=== PATIENT | female | born 1945 | race Caucasian/White ===

== ENCOUNTER 2016-10-10 06:21 | Inpatient (IN) | payer MEDICARE, MEDICAID ==
[~2016-10-10 06:21] MED LIST: ALDACTONE25 MG PO; ALPRAZOLAM0.25 MG PO; AVANDIA8 MG PO; BENTYL20 MG PO; CELEBREX100 MG PO; CITRATE OF MAG300 ML PO; COREG6.25 MG PO; COUMADIN5 M1 PO; DOCUSATE CALCI100 MG PO; DULCOLAX10 MG/SUPP RC; ELAVIL25 MG PO; FLOVENT RO50 MCG/DIS IH; GLIMEPIRIDE2 MG PO; GLUCOPHAGE500 MG PO; HUMALOG100 U/ML SQ; HYZAAR 50-12.51 TA1 PO; JANUVIA100 MG PO; K-DUR20 ME1 PO; LIPITOR20 MG PO; LOVENOX40 MG/0.4 SQ; MIRALAX17 G1 PO; MIRALAX17 GM PO; MORPHINE SULFAT1 PO; MORPHINE SULFAT30 M3 PO; OMEPRAZOLE20 MG PO; ORAMORPH SR30 M1 PO; PERCOCET 5/3251 TAB PO; PHENERGAN25 MG PO; PROAIR INHALER; RESTORIL15 MG PO; SINGULAIR10 MG PO; TRANSDERM-1 PATCH .7 TD; TRIAMTERENE/HYDR1 EA PO; TYLENOL500 MG PO; ULTRAM50 MG PO; ZANAFLEX4 M PO; ZESTRIL2.5 M2 PO; ZOCOR40 MG PO; ZOFRAN4 M1 PO; ZYRTEC10 MG PO
[2016-10-10] MEDS ORDERED: ALBUTEROL2.5 MG/3 M INH (08:22)
[2016-10-10] MEDS ORDERED: SYMBICORT 160-1 PUFF INH (08:23)
[2016-10-10] MEDS ORDERED: PLAVIX75 M1 PO ×2 (08:24→09:16)
[2016-10-10] MEDS ORDERED: DULOXETINE HCL60 M1 PO (08:25)
[2016-10-10] MEDS ORDERED: FLONASE ALLERG9.9 ML INH (08:28)
[2016-10-10] MEDS ORDERED: COZAAR25 M1 PO ×2 (08:28→09:26)
[2016-10-10] MEDS ORDERED: NEURONTIN100 M1 PO (08:28)
[2016-10-10] MEDS ORDERED: MIRALAX17 G2 PO ×2 (08:29→09:35)
[2016-10-10] MEDS ORDERED: WELLBUTRIN SR100 M2 PO (08:36)
[2016-10-10] MEDS ORDERED: NOVOLOG FL100 UNIT/2 SC (08:37)
[2016-10-10] MEDS ORDERED: TYLENOL325 M2 PO ×2 (09:14)
[2016-10-10] MEDS ORDERED: XANAX0.25 M1 PO (09:15)
[2016-10-10] MEDS ORDERED: ANORO ELLIPTA1 EAC1 PO (09:15)
[2016-10-10] MEDS ORDERED: WELLBUTRIN XL150 M1 PO (09:15)
[2016-10-10] MEDS ORDERED: COREG6.25 M1 PO (09:16)
[2016-10-10] MEDS ORDERED: COUMADIN6 M1 PO (09:17)
[2016-10-10] MEDS ORDERED: COUMADIN7.5 M1 PO (09:18)
[2016-10-10] MEDS ORDERED: CYMBALTA60 M1 PO (09:18)
[2016-10-10] MEDS ORDERED: IPRAT-ALBUT 0.5-3 ML INH ×2 (09:20→09:25)
[2016-10-10] MEDS ORDERED: FLONASE ALLERG9.9 ML (09:21)
[2016-10-10] MEDS ORDERED: LASIX40 M1 PO (09:21)
[2016-10-10] MEDS ORDERED: NEURONTIN300 M1 PO (09:21)
[2016-10-10] MEDS ORDERED: GLYCERIN1 EAC1 PR (09:22)
[2016-10-10] MEDS ORDERED: AMARYL2 M1 PO (09:22)
[2016-10-10] MEDS ORDERED: GUAIFENESIN AC473 ML PO (09:24)
[2016-10-10] MEDS ORDERED: MAG-AL PLUS XS30 M1 PO (09:27)
[2016-10-10] MEDS ORDERED: MILK OF MAGNESIA PO (09:28)
[2016-10-10] MEDS ORDERED: BENGAY ULTRA S1 EACH TOP (09:29)
[2016-10-10] MEDS ORDERED: NITROSTAT0.4 MG/TAB SL (09:31)
[2016-10-10] MEDS ORDERED: NYSTOP60 GM TOP (09:32)
[2016-10-10] MEDS ORDERED: PHENASEPTIC177 ML PO (09:34)
[2016-10-10] MEDS ORDERED: PROTONIX40 M2 PO (09:34)
[2016-10-10] MEDS ORDERED: POTASSIUM CHLO20 ME3 PO (09:36)
[2016-10-10] MEDS ORDERED: VENTOLIN HFA18 G2 INH (09:37)
[2016-10-10] MEDS ORDERED: COMPAZINE10 MG PO (09:38)
[2016-10-10] MEDS ORDERED: ROBAFEN DM CGH118 ML PO (09:39)
[2016-10-10] MEDS ORDERED: SALINE NASAL M126 ML (09:39)
[2016-10-10] MEDS ORDERED: SENNA8.6 M2 PO (09:40)
[2016-10-10] MEDS ORDERED: ZOCOR40 M1 PO (09:41)
[2016-10-10] MEDS ORDERED: ZANAFLEX4 M2 PO (09:41)
[2016-10-10] MEDS ORDERED: ULTRAM50 M1 PO (09:42)
[2016-10-10] MEDS ORDERED: TRAZODONE HCL50 M1 PO (09:44)
[2016-10-10] MEDS ORDERED: WELCHOL625 M1 PO (09:47)
[2016-10-10] MEDS ORDERED: ZOFRAN ODT8 MG PO (09:48)
[2016-10-10 11:59] LABS: BASO % 0.1 % (0-2); EOS % 0.5 % (0-7); EOSINOPHIL ABSOLUTE COUNT 0.1 tho/cmm (0.0-0.7); HCT-HEMATOCRIT 32.3 % (34.0-49.0); HGB-HEMOGLOBIN 10.2 gm/dl (12.0-15.5); IMMATURE GRANULOCYTES ABSOLUTE 0.03 tho/cmm (0-0.03); IMMATURE GRANULOCYTES PERCENT 0.3 % (0-0.3); LYMPH % 16.1 % (20-45); LYMPH ABSOLUTE COUNT 1.9 tho/cmm (0.8-4.5); MCH (MEAN CORPUSCULAR HGB) 28.5 pg (28.0-32.0); MCHC MEAN CORPUSCULAR HGB CONC 31.6 % (32.0-36.0); MCV (MEAN CELL VOLUME) 90.2 fl (82.0-96.0); MONO % 4.9 % (0-12); MONOCYTE ABSOLUTE COUNT 0.6 tho/cmm (0.0-1.2); NEUTROPHILS % 78.1 % (40-80); PLATELET COUNT 362 tho/cmm (150-450); RED BLOOD COUNT 3.58 mil/cmm (4.00-5.20); WHITE BLOOD COUNT 11.5 tho/cmm (4.0-10.0)
[2016-10-10 12:11] LABS: INR 3.7 INR (0.9-1.1); PROTHROMBIN TIME 45.2 SECONDS (9.0-13.6)
[2016-10-10 12:24] LABS: ALB/GLOB RATIO 0.6 (0.8-2.0); ALBUMIN 2.8 g/dl (3.5-5.0); ALKALINE PHOSPHATASE 91 U/L (33-138); ALT/SGPT 10 U/L (12-78); ANION GAP 11 mmol/L (0-20); AST/SGOT 14 U/L (10-40); BILIRUBIN,TOTAL 0.4 mg/dl (0-1.5); BLOOD UREA NITROGEN 16 mg/dl (6-24); CALCIUM 8.7 mg/dl (8.5-10.5); CARBON DIOXIDE-VENOUS 33 mmol/L (22-32); CHLORIDE 102 mmol/l (96-110); CREATININE 0.93 mg/dl (0.50-1.10); GLUCOSE 384 mg/dL (70-110); POTASSIUM 3.7 mmol/L (3.7-5.1); SODIUM 142 mmol/L (135-145); eGFR VALUE FOR BLACK 73 mL/Min
[2016-10-11 03:29] LABS: URINE BILIRUBIN NEGATIVE (NEG); URINE BLOOD SMALL (NEG); URINE GLUCOSE (UA) LARGE (NEG); URINE KETONE NEGATIVE (NEG); URINE LEUKOCYTE ESTERASE POSITIVE (NEG); URINE NITRITE NEGATIVE (NEG); URINE PROTEIN NEGATIVE (NEG)
[2016-10-11 03:36] LABS: URINE APPEARANCE HAZY; URINE COLOR YELLOW
[2016-10-11 03:38] LABS: URINE BACTERIA 1+; URINE RBC 0-1 /[HPF] (0-5)
[2016-10-11 14:35] LABS: BASO % 0.3 % (0-2); EOSINOPHIL ABSOLUTE COUNT 0.4 tho/cmm (0.0-0.7); HCT-HEMATOCRIT 31.7 % (34.0-49.0); HGB-HEMOGLOBIN 9.8 gm/dl (12.0-15.5); IMMATURE GRANULOCYTES ABSOLUTE 0.05 tho/cmm (0-0.03); IMMATURE GRANULOCYTES PERCENT 0.4 % (0-0.3); LYMPH % 22.9 % (20-45); LYMPH ABSOLUTE COUNT 2.9 tho/cmm (0.8-4.5); MCH (MEAN CORPUSCULAR HGB) 28.5 pg (28.0-32.0); MCHC MEAN CORPUSCULAR HGB CONC 30.9 % (32.0-36.0); MCV (MEAN CELL VOLUME) 92.2 fl (82.0-96.0); MEAN PLATELET VOLUME 9.9 cmc (9.4-12.4); MONOCYTE ABSOLUTE COUNT 1.2 tho/cmm (0.0-1.2); NEUTROPHIL ABSOLUTE COUNT 8.2 tho/cmm (1.6-8.0); NEUTROPHIL-AUTOMATED 8.2 tho/cmm (1.6-8.0); NEUTROPHILS % 64.4 % (40-80); PLATELET COUNT 330 tho/cmm (150-450); RED BLOOD COUNT 3.44 mil/cmm (4.00-5.20); RED CELL DISTRIBUTION WIDTH 14.5 % (12.4-16.4); WHITE BLOOD COUNT 12.7 tho/cmm (4.0-10.0)
[2016-10-11 16:35] LABS: ANION GAP 11 mmol/L (0-20); BLOOD UREA NITROGEN 12 mg/dl (6-24); CALCIUM 8.5 mg/dl (8.5-10.5); CARBON DIOXIDE-VENOUS 32 mmol/L (22-32); CHLORIDE 106 mmol/l (96-110); CREATININE 0.78 mg/dl (0.50-1.10); GLUCOSE 248 mg/dL (70-110); SODIUM 145 mmol/L (135-145); eGFR VALUE FOR BLACK 90 mL/Min
[2016-10-11 16:37] LABS: POTASSIUM 4.2 mmol/L (3.7-5.1)
[2016-10-11 17:30] LABS: INR 2.6 INR (0.9-1.1); PARTIAL THROMBOPLASTIN TIME 41 SECONDS (22-38); PROTHROMBIN TIME 30.8 SECONDS (9.0-13.6)
[2016-10-12 07:47] LABS: BASO % 0.3 % (0-2); EOS % 4.2 % (0-7); EOSINOPHIL ABSOLUTE COUNT 0.4 tho/cmm (0.0-0.7); HCT-HEMATOCRIT 31.6 % (34.0-49.0); HGB-HEMOGLOBIN 9.8 gm/dl (12.0-15.5); IMMATURE GRANULOCYTES ABSOLUTE 0.06 tho/cmm (0-0.03); IMMATURE GRANULOCYTES PERCENT 0.6 % (0-0.3); LYMPH % 20.5 % (20-45); MCH (MEAN CORPUSCULAR HGB) 28.8 pg (28.0-32.0); MCV (MEAN CELL VOLUME) 92.9 fl (82.0-96.0); MEAN PLATELET VOLUME 9.7 cmc (9.4-12.4); MONO % 10.3 % (0-12); NEUTROPHIL ABSOLUTE COUNT 6.3 tho/cmm (1.6-8.0); NEUTROPHIL-AUTOMATED 6.3 tho/cmm (1.6-8.0); NEUTROPHILS % 64.1 % (40-80); PLATELET COUNT 308 tho/cmm (150-450); RED CELL DISTRIBUTION WIDTH 14.6 % (12.4-16.4); WHITE BLOOD COUNT 9.8 tho/cmm (4.0-10.0)
[2016-10-12 08:12] LABS: ALB/GLOB RATIO 0.6 (0.8-2.0); ALBUMIN 2.4 g/dl (3.5-5.0); ALKALINE PHOSPHATASE 77 U/L (33-138); ANION GAP 8 mmol/L (0-20); AST/SGOT 11 U/L (10-40); BILIRUBIN,TOTAL 0.4 mg/dl (0-1.5); BLOOD UREA NITROGEN 11 mg/dl (6-24); CARBON DIOXIDE-VENOUS 33 mmol/L (22-32); CHLORIDE 106 mmol/l (96-110); GLUCOSE 200 mg/dL (70-110); POTASSIUM 3.7 mmol/L (3.7-5.1); SODIUM 143 mmol/L (135-145); eGFR VALUE FOR BLACK 87 mL/Min
[2016-10-12 08:35] LABS: ALT/SGPT <10 U/L (12-78)
[2016-10-12 08:37] LABS: PROTHROMBIN TIME 24.1 SECONDS (9.0-13.6)
== END 2016-10-12 13:30 | DRG 151 ==
LOC: 5WE 06:21
PROVIDERS: Family Medicine; Internal Medicine; ADMIT Hospitalist
PROC: 30233N1 Transfusion of Nonautologous Red Blood Cells into Peripheral Vein, Percutaneous Approach (ICD-10-PCS; principal; 2016-10-10)
PROC: 05H533Z Insertion of Infusion Device into Right Subclavian Vein, Percutaneous Approach (ICD-10-PCS; 2016-10-11)
DX: R04.0 Epistaxis (principal); J96.11 Chronic respiratory failure with hypoxia; E11.40 Type 2 diabetes mellitus with diabetic neuropathy, unspecified; Z68.42 Body mass index [BMI] 45.0-49.9, adult; E66.01 Morbid (severe) obesity due to excess calories; Z79.4 Long term (current) use of insulin; Z79.01 Long term (current) use of anticoagulants; J45.909 Unspecified asthma, uncomplicated; K21.9 Gastro-esophageal reflux disease without esophagitis; E78.5 Hyperlipidemia, unspecified; I10 Essential (primary) hypertension; M19.90 Unspecified osteoarthritis, unspecified site; K58.9 Irritable bowel syndrome, unspecified; Z86.711 Personal history of pulmonary embolism; Z88.1 Allergy status to other antibiotic agents; Z88.8 Allergy status to other drugs, medicaments and biological substances; Z79.02 Long term (current) use of antithrombotics/antiplatelets; T45.515A Adverse effect of anticoagulants, initial encounter
CPT/HCPCS: C1751; G8987-GO-CN; G8988-GO-CM; J1815; J3430; J7030; P9017